=== PATIENT | female | born 1965 | race Two or more races ===

== ENCOUNTER 2021-09-05 16:30 | Inpatient (IN) | payer OTHER ==
[2021-09-05 19:44] VITALS: BMI 33.6
[2021-09-05] MEDS ORDERED: MAG HYDROX/AL HYDROX/SIMETH 30 ML UNIT-DOSE CUP PO PRN (20:35)
[2021-09-05] MEDS ORDERED: MAGNESIUM HYDROX 2400MG/30ML ORAL SUSPENSION 30 ML CUP PO PRN (20:35)
[2021-09-05] MEDS ORDERED: METHOCARBAMOL 500 MG TABLET PO PRN (20:35)
[2021-09-05] MEDS ORDERED: hydrOXYzine PAMOATE 25 MG CAPSULE (FP) PO PRN (20:35)
[2021-09-05] MEDS ORDERED: MENTHOL/PHENOL 1 EACH UD MM PRN (20:35)
[2021-09-05] MEDS ORDERED: NICOTINE POLACRILEX 2 MG GUM BUC PRN (20:35)
[2021-09-05] MEDS ORDERED: ACETAMINOPHEN 325 MG TABLET (FP) PO PRN (20:35)
[2021-09-05] MEDS ORDERED: ONDANSETRON *ODT* 4 MG TABLET SL PRN (20:35)
[2021-09-05] MEDS ORDERED: BISMUTH SUBSALICYLATE 524 MG/30 ML PO PRN (20:35)
[2021-09-05] MEDS ORDERED: IBUPROFEN 400 MG TABLET (FP) PO PRN (20:35)
[2021-09-05] MEDS ORDERED: MAGNESIUM CITRATE 300 ML BOTTLE PO PRN (20:35)
[2021-09-06] MEDS: THIAMINE HCL 100 MG TABLET (FP) PO SCH ×2 (00:35→22:47)
[2021-09-06] MEDS: MELATONIN 5 MG TABLETS PO SCH ×2 (00:35→22:47)
[2021-09-06] MEDS: NICOTINE 21 MG/24 HOURS TOPICAL PATCH TD SCH (10:22)
[2021-09-06] MEDS: PRENATAL VITAMINS W/ FOLIC ACID TABLET (FP) PO SCH (10:23)
[2021-09-06] MEDS ORDERED: diazePAM 5 MG TABLET PO PRN (11:58)
[2021-09-06] MEDS: diazePAM 5 MG TABLET PO SCH ×3 (13:14→22:47)
[2021-09-06] MEDS: ACETAMINOPHEN 325 MG TABLET (FP) PO PRN (19:18)
[2021-09-07] MEDS: diazePAM 5 MG TABLET PO SCH ×4 (05:48→22:03)
[2021-09-07 10:30] LABS: HEMATOCRIT 33.4 % (32.4-45.2); MCH 28.6 pg (25.7-33.7); MCHC 32.8 g/dl (32.0-36.0); MEAN CELL VOLUME 87.3 fl (80-96); MEAN PLT VOLUME 9.9 fl (7.5-11.1); PLATELET COUNT 299 10^3/uL (134-434); RBC 3.83 M/mm3 (3.60-5.2); RDW 16.6 % (11.6-15.6); WHITE BLOOD COUNT 4.8 K/mm3 (4.0-10.0)
[2021-09-07] MEDS: PRENATAL VITAMINS W/ FOLIC ACID TABLET (FP) PO SCH (10:33)
[2021-09-07 10:46] LABS: CALCIUM 8.8 mg/dL (8.5-10.1)
[2021-09-07 10:47] LABS: ALBUMIN 2.8 g/dl (3.4-5.0)
[2021-09-07 10:49] LABS: CREATININE 0.7 mg/dL (0.55-1.3)
[2021-09-07 10:51] LABS: BILIRUBIN,TOTAL 0.6 mg/dL (0.2-1); TOT PROT 6.1 g/dl (6.4-8.2)
[2021-09-07] MEDS: NICOTINE 21 MG/24 HOURS TOPICAL PATCH TD SCH (12:34)
[2021-09-07 12:52] LABS: HIV INTERPRETATION NEGATIVE (NEGATIVE)
[2021-09-07] MEDS: MELATONIN 5 MG TABLETS PO SCH (22:04)
[2021-09-07] MEDS: THIAMINE HCL 100 MG TABLET (FP) PO SCH (22:04)
[2021-09-07] MEDS: ACETAMINOPHEN 325 MG TABLET (FP) PO PRN (22:05)
[2021-09-08] MEDS: diazePAM 5 MG TABLET PO SCH ×3 (05:44→22:17)
[2021-09-08] MEDS: NICOTINE 21 MG/24 HOURS TOPICAL PATCH TD SCH (10:48)
[2021-09-08] MEDS: PRENATAL VITAMINS W/ FOLIC ACID TABLET (FP) PO SCH (10:49)
[2021-09-08] MEDS: MELATONIN 5 MG TABLETS PO SCH (22:17)
[2021-09-08] MEDS: THIAMINE HCL 100 MG TABLET (FP) PO SCH (22:18)
[2021-09-09] MEDS: diazePAM 5 MG TABLET PO SCH ×2 (06:25→18:22)
[2021-09-09] MEDS: PRENATAL VITAMINS W/ FOLIC ACID TABLET (FP) PO SCH (10:36)
[2021-09-09] MEDS: NICOTINE 21 MG/24 HOURS TOPICAL PATCH TD SCH (10:36)
[2021-09-09] MEDS: THIAMINE HCL 100 MG TABLET (FP) PO SCH (21:41)
[2021-09-09] MEDS: MELATONIN 5 MG TABLETS PO SCH (21:41)
[2021-09-10] MEDS ORDERED: diazePAM 5 MG TABLET PO ONE (06:00)
[2021-09-10 08:55] VITALS: BP 108/60; PULSE 73; TEMP 97.3
== END 2021-09-10 09:15 | disposition home or self-care (01) | DRG 774 ==
LOC: YASAS 16:30 → Y3N 09-06 08:53
PROVIDERS: ADMIT Allergy & Immunology; ATTEND Allergy & Immunology
PROC: HZ2ZZZZ Detoxification Services for Substance Abuse Treatment (ICD-10-PCS; principal; 2021-09-06)
DX: F10.230 Alcohol dependence with withdrawal, uncomplicated (principal); F14.20 Cocaine dependence, uncomplicated; F17.210 Nicotine dependence, cigarettes, uncomplicated; F19.24 Other psychoactive substance dependence with psychoactive substance-induced mood disorder; E11.9 Type 2 diabetes mellitus without complications; G47.00 Insomnia, unspecified; M54.59 Other low back pain; G89.29 Other chronic pain; M17.12 Unilateral primary osteoarthritis, left knee; Z90.13 Acquired absence of bilateral breasts and nipples; Z86.19 Personal history of other infectious and parasitic diseases; Z85.3 Personal history of malignant neoplasm of breast; Z56.0 Unemployment, unspecified
CPT/HCPCS: 36415; 80053; 81025; 82962; 84132; 85027; 86593; 86780; 87389; 93005; 93010; C9803; U0003; U0005